=== PATIENT | female | born 1950 | race Two or more races ===

== ENCOUNTER → 2023-11-09 | Outpatient (CLI) | payer BC ==
[~2023-11-09] VITALS: Ht 157.5 cm; Wt 72.6 kg
[2023-11-09] MEDS: albuterol 2.5 MG/3 ML nebule NEB ONE (14:48)
[2023-11-09 14:49] VITALS: PULSE 97; RESP 14; O2SAT 96
[2023-11-09 15:00] VITALS: PULSE 92; RESP 16
== END | disposition home or self-care (01) ==
LOC: RT 14:11
PROVIDERS: ATTEND Student in an Organized Health Care Education/Training Program
DX: R06.02 Shortness of breath (principal)
CPT/HCPCS: 94060; 94760